=== PATIENT | male | born 1960 | race Caucasian/White ===

== ENCOUNTER 2017-08-20 06:24 | Observation (INO) | payer OTHER ==
[~2017-08-20] VITALS: Ht 195.6 cm; Wt 130.8 kg
[2017-08-20] VITALS (14 sets, daily range): BP systolic 118–151; BP diastolic 83–101; PULSE 67–76; RESP 7–19; Ht 195.6 cm; Wt 130.8 kg
[~2017-08-20 06:24] MED LIST: SOD CHLORIDE 0.9% 1,000 ML IV SCH
[2017-08-20 07:17] LABS: BASOPHIL # 0.1 10^3/ul (0.0-0.1); BASOPHILS % 1.1 % (0.0-2.0); EOSINOPHILS # 0.2 10^3/ul (0.0-0.5); EOSINOPHILS % 3.1 % (0.0-7.0); HEMATOCRIT 44.6 % (42.0-52.0); HEMOGLOBIN 15.2 g/dl (14.0-18.0); LYMPHOCYTES # 1.5 10^3/ul (0.8-2.9); LYMPHOCYTES % 20.1 % (15.0-51.0); MEAN CORPUSCULAR HGB CONC 34.1 g/dl (32.0-37.0); MEAN CORPUSCULAR VOLUME 93.9 fl (82.0-101.0); MEAN PLATELET VOLUME 8.9 fl (7.4-10.4); MONOCYTE # 0.9 10^3/ul (0.3-0.9); MONOCYTES % 11.7 % (0.0-11.0); NEUTROPHIL # 4.8 10^3/ul (1.6-7.5); NEUTROPHILS % 63.3 % (39.0-77.0); PLATELET COUNT 247 10^3/UL (140-415); RED BLOOD COUNT 4.75 10^6/ul (4.70-6.10); RED CELL DISTRIBUTION WIDTH 13.1 % (11.5-14.5); WHITE BLOOD COUNT 7.5 10^3/ul (4.8-10.8)
[2017-08-20] MEDS ORDERED: PRED10TA PO (07:20)
[2017-08-20] MEDS ORDERED: LISI20TA11 PO (07:20)
[2017-08-20] MEDS ORDERED: ASPI81TA3 PO (07:20)
[2017-08-20 07:40] LABS: INR 0.96; PROTIME 12.8 Sec (12.2-14.2)
[2017-08-20 07:41] LABS: PARTIAL THROMBOPLASTIN TIME 25.3 Sec (25.0-35.0)
[2017-08-20] MEDS ORDERED: MIDAZOLAM 1 MG/ML 2 ML INJ ONE ×3 (07:43→09:07)
[2017-08-20] MEDS ORDERED: IODIXANOL LOCM 100 ML BTL ONE ×3 (07:43→09:26)
[2017-08-20] MEDS ORDERED: HEPARIN 1000 UNITS/NS (A-LINE) 1,000 ML ONE (07:43)
[2017-08-20] MEDS ORDERED: VERAPAMIL 5 MG INJ ONE (07:43)
[2017-08-20] MEDS ORDERED: FENTAnyl 50 MCG/ML VIAL ONE ×2 (07:43→09:00)
[2017-08-20] MEDS ORDERED: LIDOCAINE 1% (MDV) 20 ML INJ ONE (07:43)
[2017-08-20] MEDS ORDERED: NITROGLYCERIN (IC) 100 MCG/ML INJ ONE (07:43)
[2017-08-20] MEDS ORDERED: HEPARIN 1000 UNITS/ML 10 ML INJ ONE ×2 (07:43→09:26)
[2017-08-20 07:46] LABS: ALBUMIN 4.5 g/dl (3.3-4.9); ALBUMIN/GLOBULIN RATIO 1.6; BILIRUBIN,INDIRECT 0.5 mg/dl (0-1.1); BILIRUBIN,TOTAL 0.5 mg/dl (0.2-1.3); TOTAL PROTEIN 7.3 g/dl (6.1-8.1)
[2017-08-20 07:58] LABS: CALCIUM 9.1 mg/dl (8.4-10.2); CREATININE 1.05 mg/dl (0.61-1.24)
[2017-08-20] MEDS ORDERED: ASPIRIN 325 MG TAB ONE (09:27)
[2017-08-20] MEDS ORDERED: CLOPIDOGREL 300 MG TAB ONE (09:27)
[2017-08-20] MEDS ORDERED: SOD CHLORIDE 0.9% 1,000 ML IV SCH (09:32)
[2017-08-20] MEDS ORDERED: CLOP75TA27 PO (09:36)
--- NOTE | 2017-08-20 09:37 | PDOCDIS ---
Discharge Instructions CONDITION Patient Condition: Good HOME CARE INSTRUCTIONS: Diet Instructions: Low Fat /Cholesterol ACTIVITY: Activity Restrictions: Slowly Increase Activity Avoid heavy lifting (not > 5 pounds with right arm for 3 days) [address] (one day) FOLLOW UP/APPOINTMENTS Follow-up Plan dr nunn 1 week BULMARO RAMOS MD Aug 20, 2017 09:37
--- NOTE | 2017-08-20 09:57 | OPR ---
Date/Time of Note Date/Time of Note DATE: 08/20/17 TIME: 09:42 Operative Report Preoperative Diagnosis unstable angina Postoperative Diagnosis cad Surgeon see signature line Lead Furnace Operator none Anesthesia Type: other (conscious sedation) Estimated Blood Loss: minimal Transfusion none Specimen none Grafts/Implants none Complications none Procedure Description Operation/Procedure Performed Left heart catheterization Right and left coronary angiogram Interpretation and supervision of right left coronary angiogram Left ventricular pressure measurements PCI of the PLB Conscious sedation Right radial artery approach Surgeon Zac/Gabriella Lead Furnace Operator None Anesthesia Type: other (Conscious sedation) Estimated Blood Loss: minimal Transfusion none Specimen None Grafts/Implants none Complications none Pt Condition Post Procedure: stable Indications This is an 56-year-old fmale with unstable angina Procedure Description Findings Hemodynamics LV pressure 178/12with EDP of 18 Aortic pressure 120/88 Fluoroscopy Coronary anatomy Left main is a medium caliber vessel and short with no significant disease LAD is a medium caliber vessel with a 90% distal at the apex RI - 80% ostial Circumflex - 50% ostial RCA- 80% PLB s/p PCI/ 2.25 x 16mm PERLA Description of procedure Patient brought to the Rn Intake after informed consent. Patient was prepped and draped as per protocol. Right radial access was obtained and a 5/6 Chinese sheath was placed in the right radial artery. 5 Chinese JL 3.5 diagnostic catheter was used to engage the left main and angiogram was performed. A 5 Chinese [place] diagnostic catheter was used to engage the LCA and JR 4 to egnage the RCA. The left ventricle was entered and pressure measurements were obtained as well as pullback. Intially a Rey catheter used to engage the RCA and then an [id number] catheter to engage the RCA, run osmar wire, 2.0x8mm ballon to perform PCI, follwed by [id number] PERLA Synergy stent deployed at 18ATM (2.48 mmhg ) All catheters and wires removed, patient remained chest pain free throughout the procedure. BULMARO RAMOS MD Aug 20, 2017 09:52
[2017-08-20] MEDS ORDERED: AL HYDROX/MG HYDROX/SIMETH 30 ML CUP PO PRN (10:00)
[2017-08-20] MEDS ORDERED: ACETAMINOPHEN 325 MG TAB PO PRN (10:00)
[2017-08-20] MEDS ORDERED: OXYCODONE/ACETAMINOPHEN (5/325) TAB PO PRN (10:00)
[2017-08-20] MEDS ORDERED: ONDANSETRON 4 MG INJ IV PRN (10:00)
[2017-08-21] MEDS ORDERED: ASPIRIN (EC) 81 MG TAB PO SCH (09:00)
[2017-08-21] MEDS ORDERED: CLOPIDOGREL 75 MG TAB PO SCH (09:00)
--- NOTE | 2017-08-21 15:41 | RADRPT ---
Vent Rate: 72 bpm RR Interval: 0 msec SD Interval: 218 msec QRS Duration: 112 msec QT Interval: 408 msec QTC Interval: 446 msec P-R-T [place]: 60 - 27 - 65 degrees Sinus rhythm with 1st degree AV block Septal infarct , age undetermined Abnormal ECG Electronically Signed By: Xavier Rios [id number]
--- NOTE | 2017-08-21 15:44 | RADRPT ---
Vent Rate: 63 bpm RR Interval: 0 msec ND Interval: 228 msec QRS Duration: 112 msec QT Interval: 442 msec QTC Interval: 452 msec P-R-T [place]: 52 - 5 - 47 degrees Sinus rhythm with 1st degree AV block Septal infarct , age undetermined Abnormal ECG Electronically Signed By: Xavier Rios [id number]
== END 2017-08-20 18:00 | disposition home or self-care (01) ==
LOC: SDS 06:24 → ICU 10:05
PROVIDERS: ADMIT Internal Medicine Cardiovascular Disease; ATTEND Internal Medicine Cardiovascular Disease
DX: I25.110 Atherosclerotic heart disease of native coronary artery with unstable angina pectoris (principal); I10 Essential (primary) hypertension; Z88.0 Allergy status to penicillin
CPT/HCPCS: 80053; 85025; 85610; 85730; 87081; 93005; 93458; C1725; C1874; C1887; C1894; C9600; G0378; J1644; J2250; J3010; Q9967; J7030